=== PATIENT | female | born 1970 | race Caucasian/White ===

== ENCOUNTER 2016-10-18 13:57 | Emergency (ER) | payer OTHER ==
[2016-10-18] MEDS ORDERED: PRINIVIL10 M1 PO (14:42)
[2016-10-18] MEDS ORDERED: TOPAMAX50 M3 PO (14:42)
[2016-10-18] MEDS ORDERED: VENLAFAXINE HC150 M2 PO (14:42)
[2016-10-18 15:15] LABS: URINE APPEARANCE CLEAR; URINE BILIRUBIN NEGATIVE (NEG); URINE BLOOD NEGATIVE (NEG); URINE COLOR DARK YELLOW; URINE GLUCOSE (UA) NEGATIVE (NEG); URINE KETONE NEGATIVE (NEG); URINE LEUKOCYTE ESTERASE POSITIVE (NEG); URINE NITRITE NEGATIVE (NEG); URINE PROTEIN MODERATE (NEG); URINE SPECIFIC GRAVITY 1.025 (1.003-1.030)
[2016-10-18 15:21] LABS: URINE BACTERIA 2+; URINE MUCUS 1+
[2016-10-18 15:23] LABS: eGFR VALUE FOR BLACK 77 mL/Min
[2016-10-18 15:28] LABS: PREGNANCY-SERUM NEGATIVE (NEGATIVE)
[2016-10-18 16:34] LABS: URINE APPEARANCE CLEAR; URINE BILIRUBIN NEGATIVE (NEG); URINE BLOOD NEGATIVE (NEG); URINE COLOR YELLOW; URINE GLUCOSE (UA) NEGATIVE (NEG); URINE KETONE NEGATIVE (NEG); URINE LEUKOCYTE ESTERASE NEGATIVE (NEG); URINE NITRITE NEGATIVE (NEG); URINE PROTEIN MODERATE (NEG); URINE SPECIFIC GRAVITY 1.025 (1.003-1.030)
[2016-10-18 16:39] LABS: URINE AMORPHOUS 1+; URINE BACTERIA 1+
[2016-10-18] MEDS ORDERED: BACTRIM DS TAB1 EAC2 PO (17:33)
[2016-10-18] MEDS ORDERED: ZOFRAN4 M2 PO (17:33)
[2016-10-18] MEDS ORDERED: NORCO 5-325 TA1 EACH PO (17:33)
== END 2016-10-18 17:45 ==
LOC: EDMED 13:57
PROVIDERS: Emergency Medicine
DX: N23 Unspecified renal colic (principal); I10 Essential (primary) hypertension; Z87.442 Personal history of urinary calculi; Z90.89 Acquired absence of other organs; Z79.899 Other long term (current) drug therapy; Z98.890 Other specified postprocedural states; Z87.891 Personal history of nicotine dependence
CPT/HCPCS: J1885; J2405; J7030; P9612